=== PATIENT | male | born 1975 | race Caucasian/White ===

== ENCOUNTER → 2018-12-22 | Outpatient (CLI) | payer BC, SELFPAY ==
[2018-12-22 17:38] LABS: Absolute Lymphocyte Count 2.05 X10^3/uL (0.83-4.51); Absolute Neutrophil Count 3.2 X10^3/uL (2.0-7.7); Basophil# 0.03 X10^3/uL; Basophil% 0.5 % (0-1); Eosinophils% 1.6 % (0-5); Hematocrit 52.6 % (40-54); Hemoglobin 17.2 g/dL (13.0-16.5); Lymphocyte # 2.05 X10^3/ul (4.0); Lymphocyte % 32.9 % (19-41); Mean Corp Hgb Conc 32.7 g/dL (32-36); Mean Corpuscular Hgb 30.3 pg (27.0-32.0); Mean Corpuscular Volume 92.6 fL (80-94); Mean Platelet Vol. 9.3 fl (6.2-12.0); Monocyte# 0.82 X10^3/uL; Monocyte% 13.2 % (0-10); NRBC Flagged by Analyzer 0 % (0-5); Neutrophil # 3.21 X10^3/uL (2.7-7.7); Neutrophil % 51.5 % (47-70); Platelet Count 205 K/mm3 (150-450); RBC Distribution Width CV 12.4 % (11.6-14.6); Red Blood Count 5.68 M/mm3 (4.6-6.2); White Blood Count 6.2 K/mm3 (4.4-11.0)
[2018-12-22 18:01] LABS: Anion Gap 5 (5-15); BUN 14 mg/dL (7-18); Calcium,Total 8.7 mg/dL (8.5-10.1); Chloride 105 mmol/L (98-107); Cholesterol 281 mg/dL (200); Creatinine, Serum 1.17 mg/dL (0.70-1.30); EST Glomerular Filtration Rate 71 mL/min (>60); Est Glom Filt Rate - Afr Amer 86 mL/min (>60); Glucose 97 mg/dL (74-106); High Density Lipoprotein 44 mg/dL; Potassium 3.9 mmol/L (3.5-5.1); Sodium Level 139 mmol/L (136-145); Thyroid Stim Hormone (TSH) 1.74 uIU/mL (0.358-3.74); Triglycerides 119 mg/dL; Very Low Density Lipoprotein 24 mg/dL (5-40)
== END | disposition home or self-care (01) ==
PROVIDERS: Family Provider Family Medicine; PCP Family Medicine; Referring Provider Family Medicine; Visit Provider Family Medicine
DX: Z00.00 Encounter for general adult medical examination without abnormal findings (principal)
CPT/HCPCS: 36415; 80048; 80061; 84403; 84443; 85025

== ENCOUNTER 2022-01-23 19:42 | Emergency (ER) | payer OTHER, SELFPAY ==
[2022-01-23 19:44] VITALS: BP 163/96; PULSE 87; RESP 17; TEMP 37.1; O2SAT 99; BMI 37.4
--- NOTE | 2022-01-23 20:05 | EDS_ITS ---
HPI History of Present Illness Chief Complaint: Lower Extremity Injury Narrative Narrative: Patient presents with left calf pain that he has had for the last 6-7 days. He states last Wednesday he had his removing his daughter and he was going up and down stairs moving furniture. He states his left calf felt tight, but then it continued to the point where there is a spot on his left calf which feels hard. He denies any chest pain or shortness of breath. No redness to his leg or circumferential swelling. He was reading on the Internet and became concerned and wanted to have an ultrasound to rule out a blood clot. He states he made an appointment with his primary care physician for Wednesday, but was concerned because he noticed elevated blood pressure. He denies any headache. No other symptoms. PFSH PFS Home Medications Workout Supplements 1 tab PO DAILY 04/12/15 [History Last Taken Unknown] Allergy/AdvReac Type Severity Reaction Status Date / Time amoxicillin Allergy Vomiting Verified 01/23/22 19:47 Social History Smoking Status: Never smoker ROS ROS ED ROS Narrative Constitutional: No fever, no chills. HEENT: No sore throat. No neck pain. No loss of vision. No rhinorrhea. Cardiovascular: No chest pain. No palpitations. No pedal edema. Respiratory: No cough, no shortness of breath. Abdominal: No abdominal pain. No nausea. No vomiting. Genitourinary: No dysuria. No hematuria. Musculoskeletal: Left posterior calf pain. No arthralgias. Neurologic: No headaches. No dizziness. No lightheadedness. Skin: No rash. No change in color. Psychiatric: No depression. No anxiety. EXAM Physical Exam Narrative Exam Narrative: Afebrile. Vital signs noted. HEENT: Normocephalic. Atraumatic. PERRL, EOMI. Neck soft and supple. No point tenderness or step off. Cardiovascular: Regular rate and rhythm. No murmurs, rubs, or gallops appreciated. Respiratory: No tachypnea. Lungs clear to auscultation bilaterally. Gastrointestinal: Abdomen soft, nontender, with normoactive bowel sounds. No r ebound or guarding. Neurological: Awake. Alert. Nonfocal, nonlateralizing. Skin: No rash. Normal color. No pallor. Musculoskeletal: No pedal edema. Full range of motion extremities. Mild tenderness to palpation in left calf an area of skin excoriation where patient states he has a bug bite. No circumferential swelling. No palpable cord. Full range of motion of knee and ankle. No erythema. Palpable dorsalis pedis pulse. Const Vital Signs: 01/23/22 19:44 Temperature 98.8 F Temperature Source Temporal Pulse Rate 87 Respiratory Rate 17 Blood Pressure 163/96 H Blood Pressure Mean 118 Pulse Ox 99 Oxygen Delivery Method Room Air MDM MDM MDM Narrative Medical decision making narrative: Primarily, the area is below the knee. Suspicion is low for DVT. Ultrasound was obtained to rule out deep venous thrombosis. Regarding his elevated blood pressure. He does have an elevated reading here at 163/96. He thinks it may be secondary to stress. He does have a blood pressure cuff at home and he states he monitors his blood pressure once a month. As he is asymptomatic, he was told to follow-up on Wednesday regarding his elevated blood pressure. I do not feel that any laboratory work is indicated. Ultrasound of the left lower extremity does reveal a mid calf peroneal DVT. As this is below the knee, he may only require serial ultrasounds and not anticoagulation. I did discuss the patient with the vascular surgeon, Dr. Miguel Devi, who agrees with close outpatient follow-up on Wednesday, day 3 for repeat ultrasound. He will be decided then whether or not the patient should go under a 6-week anticoagulation period. I feel he can be discharged safely home with follow-up to vascular surgery. Return instructions were reviewed. Disposition is discharged home in stable condition. Discharge Plan Triage Chief Complaint: Lower Extremity Injury ED Provider: Gustavo Moya Dx/Rx/DC Orders Clinical Impression: Pain of left calf, Elevated blood pressure reading without diagnosis of hypertension, Acute deep vein thrombosis (DVT) of peroneal vein Instructions: ED Deep Vein Thrombosis (DVT) Prescriptions: No Action Workout Supplements 1 tab PO DAILY Primary Care Provider: Kamaljit Vazquez Referrals: Miguel Devi MD [Med Staff - Active Staff] - 01/26/22 Anup Richards MD [Med Staff - Active Staff] - Keep Michel appointment Activity Restrictions/Additional Instructions: Still perform daily activities such as walking, but do not overstrain your calf muscles. Follow-up with Dr. Miguel Devi on Wednesday. You may only require serial ultrasounds. Call the office first thing on Wednesday morning to be seen for repeat duplex ultrasound of your left leg on Wednesday the . His phone number is Disposition Disposition: Home, Self Care
--- NOTE | 2022-01-23 20:11 | US_ITS ---
STUDY: VENOUS DOPPLER ULTRASOUND - BILATERAL LOWER EXTREMITIES REASON FOR EXAM: Male, 46 years old. undefined -- PAIN LT LEG TECHNIQUE: Ultrasound evaluation of the deep vein system to include dunlap-scale imaging and compression was performed. Dunlap-scale imaging and Doppler sonographic evaluation, including duplex spectral analysis and qualitative color flow sonography, was performed. COMPARISON: None. FINDINGS: RIGHT LEG Common Femoral Vein: Normal compression, spontaneity and augmentation. Normal color Doppler. Common Femoral Vein/Greater Saphenous Junction: Normal compression, spontaneity and augmentation. Normal color Doppler. Deep Femoral Vein: Normal compression, spontaneity and augmentation. Normal color Doppler. Femoral Proximal: Normal compression, spontaneity and augmentation. Normal color Doppler. Femoral Middle: Normal compression, spontaneity and augmentation. Normal color Doppler. Femoral Distal: Normal compression, spontaneity and augmentation. Normal color Doppler. Popliteal Vein: Normal compression, spontaneity and augmentation. Normal color Doppler. Posterior Tibial Vein: Normal compression, spontaneity and augmentation. Normal color Doppler. Peroneal Vein: Normal compression, spontaneity and augmentation. Normal color Doppler. LEFT LEG Common Femoral Vein: Normal compression, spontaneity and augmentation. Normal color Doppler. Common Femoral Vein/Greater Saphenous Junction: Normal compression, spontaneity and augmentation. Normal color Doppler. Deep Femoral Vein: Normal compression, spontaneity and augmentation. Normal color Doppler. Femoral Proximal: Normal compression, spontaneity and augmentation. Normal color Doppler. Femoral Middle: Normal compression, spontaneity and augmentation. Normal color Doppler. Femoral Distal: Normal compression, spontaneity and augmentation. Normal color Doppler. Popliteal Vein: Normal compression, spontaneity and augmentation. Normal color Doppler. Posterior Tibial Vein: Normal compression, spontaneity and augmentation. Normal color Doppler. Peroneal Vein: Noncompressible filled with thrombus. US/Venous Duplex Imag/Lucius Extrem IMPRESSION: Positive for calf vein thrombosis of the left peroneal vein. Electronically Signed: Kervin Ellington MD at 21:52 EDT ,
[2022-01-23 21:33] VITALS: BP 168/91
== END 2022-01-23 21:34 | disposition home or self-care (01) ==
PROVIDERS: Emergency Provider Emergency Medicine; PCP Family Medicine; Visit Provider Emergency Medicine
DX: I82.452 Acute embolism and thrombosis of left peroneal vein (principal); R03.0 Elevated blood-pressure reading, without diagnosis of hypertension; M79.662 Pain in left lower leg
CPT/HCPCS: 93970; 99282

== ENCOUNTER → 2022-01-27 | Outpatient (CLI) | payer OTHER, SELFPAY ==
--- NOTE | 2022-01-27 14:20 | VDLE_ITS ---
Reason For Study: DVT Procedure LEFT This is a venous duplex using B-mode, color GSV is normal. flow and spectral Doppler. CFV is compressible, spontaneous, phasic, Exam performed in department. competent, and demonstrates normal The exam was abbreviated due to the COVID 19 augmentation. protocol. FV is compressible, spontaneous, phasic, The exam was diagnostic. competent and demonstrates normal A preliminary report was called and/or faxed augmentation. to Dr. Devi. POP V is compressible, spontaneous, phasic, competent and demonstrates normal augmentation. T/P Trunk is compressible. PTV are dilated and noncompressible. Proximal Peroneal V are dilated and noncompressible. Mid and Dist Peroneal V are compressible. VL/Venous Duplex US, Unilateral Interpretation Summary Acute deep vein thrombosis is noted in the left posterior tibial vein and proxi mal peroneal vein. Similar in appearance to prior study with no proximal propagation Ordering Physician: Miguel Devi Performed By: Silverio Mckay RVT
== END | disposition home or self-care (01) ==
LOC: CVS 14:19
PROVIDERS: PCP Family Medicine; Referring Provider Surgery Trauma Surgery; Visit Provider Surgery Trauma Surgery
DX: I82.452 Acute embolism and thrombosis of left peroneal vein (principal)
CPT/HCPCS: 93971

== ENCOUNTER → 2022-02-18 | Outpatient (CLI) | payer OTHER, SELFPAY ==
--- NOTE | 2022-02-18 07:44 | VDLE_ITS ---
Reason For Study: DVT RIGHT LEFT CFV is compressible, spontaneous, phasic, GSV is normal. competent and demonstrates normal CFV is compressible, spontaneous, phasic, augmentation. competent, and demonstrates normal Procedure augmentation. This is a venous duplex using B-mode, color FV is compressible, spontaneous, phasic, flow and spectral Doppler. competent and demonstrates normal Exam performed in department. augmentation. The exam was diagnostic. POP V is compressible, spontaneous, phasic, competent and demonstrates normal augmentation. T/P Trunk is compressible. PTV dilated and noncompressible. No flow noted in color and pulse wave doppler. LT PerV is compressible. VL/Venous Duplex US, Unilateral Interpretation Summary Acute deep vein thrombosis is noted in the left posterior tibial vein. Negative for propagation Ordering Physician: Miguel Devi Referring Physician: Miguel Devi MD Performed By: Israel Rogers, RVT
== END | disposition home or self-care (01) ==
LOC: CVS 07:44
PROVIDERS: PCP Family Medicine; Referring Provider Surgery Trauma Surgery; Visit Provider Surgery Trauma Surgery
DX: I82.459 Acute embolism and thrombosis of unspecified peroneal vein (principal)
CPT/HCPCS: 93971

== ENCOUNTER → 2022-06-19 | Outpatient (CLI) | payer OTHER, SELFPAY ==
[2022-06-19 15:26] LABS: Erythrocyte Sedimentation Rate 11 mm/hr (0-20)
== END | disposition home or self-care (01) ==
LOC: LABSPEC 14:58
PROVIDERS: PCP Family Medicine; Referring Provider Nurse Practitioner Primary Care; Visit Provider Nurse Practitioner Primary Care
DX: R10.31 Right lower quadrant pain (principal)
CPT/HCPCS: 85652

== ENCOUNTER 2023-01-10 09:00 | Emergency (ER) | payer OTHER, SELFPAY ==
[2023-01-10 09:01] VITALS: BP 146/96; PULSE 89; RESP 16; TEMP 36.4; O2SAT 97; BMI 36.9
--- NOTE | 2023-01-10 10:35 | EDS_ITS ---
HPI History of Present Illness Chief Complaint: Lower Extremity Injury Narrative Narrative: 47-year-old male past medical history of previous below the knee peroneal clot in his left lower extremity, did not take blood thinners, presents with left hip pain and with numbness underneath his left great toe that he has had for quite some time, but is worsening. He states that he was seen by his primary care provider initially and was sent to physical therapy for arthritis in his back. He also sees a chiropractor. Over the last few days, he has been having worsening left buttocks pain and left hip pain, states he is having difficulty raising his left big toe and has numbness and burning pain but needs that. He states the pain in his hip also shoots down to his foot leg, and radicular symptoms. He denies any fevers or chills, no nausea or vomiting, no saddle anesthesia, no loss of bowel or bladder. He went to urgent care today, and they were concerned regarding a blood clot again in his left lower extremity. He denies any chest pain or shortness of breath, no overt leg swelling, no other symptoms. [facility] Home Medications Workout Supplements 1 tab PO DAILY 04/12/15 [History Last Taken Unknown] cyclobenzaprine 10 mg tablet 10 mg PO TID PRN Muscle Spasm #20 TABLETS 01/10/23 [Rx Last Taken Unknown] methylprednisolone 4 mg tablets in a dose pack (Medrol (Toni)) 4 mg PO DAILY #21 tabs 01/10/23 [Rx Last Taken Unknown] Allergy/AdvReac Type Severity Reaction Status Date / Time amoxicillin Allergy Vomiting Verified 01/10/23 09:06 Family History Other CVA (cerebral vascular accident) Thyroid disorder Social History Smoking Status: Never smoker alcohol intake: current ROS ROS ED ROS Narrative Constitutional: No fever, no chills. HEENT: No sore throat. No neck pain. No loss of vision. No rhinorrhea. Cardiovascular: No chest pain. No palpitations. No pedal edema. Respiratory: No cough, no shortness of breath. Abdominal: No abdominal pain. No nausea. No vomiting. Genitourinary: No dysuria. No hematuria. Musculoskeletal: No myalgias. Left hip and buttocks pain. Neurologic: No headaches. No dizziness. No lightheadedness. Burning pain and numbness underneath the left great toe, mild weakness of left great toe. Skin: No rash. No change in color. Psychiatric: No depression. No anxiety. EXAM Physical Exam Narrative Exam Narrative: Afebrile. Vital signs noted. HEENT: Normocephalic. Atraumatic. PERRL, EOMI. Neck soft and supple. No point tenderness or step off. Cardiovascular: Regular rate and rhythm. No murmurs, rubs, or gallops appreciated. Respiratory: No tachypnea. Lungs clear to auscultation bilaterally. Gastrointestinal: Abdomen soft, nontender, with normoactive bowel sounds. No rebound or guarding. Neurological: Awake. Alert. Nonfocal, nonlateralizing. Questionable weakness of EHL, but EHL intact left great toe. Skin: No rash. Normal color. No pallor. Musculoskeletal: No pedal edema. Full range of motion extremities. Palpable dorsalis pedis pulse. Flexion and extension of left knee intact. Flexion extension left hip also intact. No swelling or palpable cord. No erythema of left lower extremity, thigh or calf. Mild tenderness to palpation left sciatic notch. No vertebral point tenderness or bony step-off of the lumbar spine. Const Vital Signs: 01/10/23 09:01 Temperature 97.5 F L Temperature Source Temporal Pulse Rate 89 Respiratory Rate 16 Blood Pressure 146/96 H Blood Pressure Mean 112 Pulse Ox 97 Oxygen Delivery Method Room Air MDM MDM MDM Narrative Medical decision making narrative: I reviewed the patient's prior ED visits. Regarding his perineal clot, they state that he was treated with 1 dose of blood thinner, he followed up with vascular surgery, and his symptoms resolved. Additionally, he is being treated for degenerative disc disease of his back. While he does not have back pain, feel he has more of a sciatic and lumbar radiculopathy. Through shared decision making, and the fact that I do not feel that an ultrasound is emergently ind icated, patient and his are comfortable with that, and can follow-up with his primary care provider for imaging. I discussed the use of narcotic pain medication with him and he declined. Instead, in the emergency department he will be given intramuscular injections of Norflex and Toradol. I will write him a prescription for Medrol Dosepak and for Flexeril to take as needed. He will follow-up with his primary care provider in the next few days. There are no signs of cauda equina, no red flag signs and I do not feel that imaging of his back is indicated as he states he has had this in the past and was diagnosed with degenerative disc disease. I feel he be discharged safely home with follow-up and continued physical therapy and treatment for lumbar radiculopathy/sciatica. Patient is comfortable with the plan. Disposition is discharged home in stable condition. Discharge Plan Triage Chief Complaint: Lower Extremity Injury ED Provider: Gustavo Moya Dx/Rx/DC Orders Clinical Impression: Sciatica of left side, Left lumbar radiculopathy Instructions: ED Sciatica Prescriptions: New methylprednisolone [Medrol (Toni)] 4 mg tablets,dose pack 4 mg PO DAILY Qty: 21 0RF cyclobenzaprine 10 mg tablet 10 mg PO TID PRN (Reason: Muscle Spasm) Qty: 20 0RF No Action Workout Supplements 1 tab PO DAILY Primary Care Provider: Kamaljit Vazquez Referrals: Kamaljit Vazquez MD [Primary Care Provider] - 3-5 Days Activity Restrictions/Additional Instructions: Follow-up with your primary care provider, chiropractor, and continue physical therapy. Return with new or worsening symptoms. Disposition Disposition: Home, Self Care
[2023-01-10] MEDS: Orphenadrine 60 MG/2 ML Ampul IM (10:38)
[2023-01-10] MEDS: Ketorolac 60 MG/2 ML Vial IM (10:38)
== END 2023-01-10 11:40 | disposition home or self-care (01) ==
LOC: ED 11:02
PROVIDERS: Emergency Provider Emergency Medicine; PCP Family Medicine; Visit Provider Emergency Medicine
DX: M54.32 Sciatica, left side (principal); M54.16 Radiculopathy, lumbar region
CPT/HCPCS: 96372; 99282

== ENCOUNTER 2023-05-04 09:50 | Emergency (ER) | payer BC, SELFPAY ==
[2023-05-04 09:51] VITALS: BP 169/87; PULSE 98; RESP 18; TEMP 36.1; O2SAT 96; BMI 38.7
--- NOTE | 2023-05-04 10:13 | EDS_ITS ---
HPI History of Present Illness Chief Complaint: Edema Informant: patient Onset/Context/Timing Onset: Today Narrative Narrative: Patient presents with swelling to his upper lip. He states he woke around 130 this morning and felt like his upper lip was swollen. He denies tongue edema or throat tightness. He went to urgent care this morning but they advised they could not treat him and sent him to the emergency room. Patient is on lisinopril and has been for the last year and a half. [facility] Medical History (Updated 05/04/23 @ 13:[address] Alba Kumari MD) Hypertension Home Medications Workout Supplements 1 tab PO DAILY 04/12/15 [History Last Taken Unknown] cyclobenzaprine 10 mg tablet 10 mg PO TID PRN Muscle Spasm #20 TABLETS 01/10/23 [Rx Last Taken Unknown] methylprednisolone 4 mg tablets in a dose pack (Medrol (Toni)) 4 mg PO DAILY #21 tabs 01/10/23 [Rx Last Taken Unknown] prednisone 20 mg tablet 40 mg (2 x 20 mg) PO DAILY #8 tabs 05/04/23 [Rx Last Taken Unknown] Allergy/AdvReac Type Severity Reaction Status Date / Time amoxicillin Allergy Vomiting Verified 05/04/23 09:51 Family History Other CVA (cerebral vascular accident) Thyroid disorder Social History Smoking Status: Never smoker alcohol intake: current ROS ROS ED Constitutional Constitutional ED: Denies chills or fever(s) Eyes Eyes: Denies discharge from eye(s) ENT ENT ED: Reports other Details: Upper lip edema ; Denies discharge from eye(s), rhinorrhea or sore throat Cardiovascular Cardiovascular: Denies chest pain or palpitations Respiratory/Chest Respiratory/Chest: Denies cough or dyspnea Gastrointestinal Gastrointestinal: Denies abdominal pain, nausea or vomiting Genitourinary Genitourinary ED: Denies dysuria Musculoskeletal Musculoskeletal: Denies back pain or extremity pain Integumentary Denies Abrasions or rash Neurologic Neurologic: Denies headache(s) or weakness Psychiatric Psychiatric: Denies anxiety or depression Allergic/Immunologic Allergic/Immunologic ED: Denies lip swelling or urticaria EXAM Physical Exam Const Vital Signs: 05/04/23 09:51 05/04/23 10:55 05/04/23 10:56 Temperature 96.9 F L Temperature Source Temporal Pulse Rate 98 90 Respiratory Rate 18 16 Respiratory Effort Normal Respiratory Pattern Normal Blood Pressure 169/87 H 126/75 H Blood Pressure Mean 114 92 Pulse Ox 96 96 Oxygen Delivery Method Room Air Room Air 05/04/23 12:20 05/04/23 14:12 Temperature Temperature Source Pulse Rate 94 91 Respiratory Rate 16 16 Respiratory Effort Respiratory Pattern Blood Pressure 116/78 130/87 H Blood Pressure Mean 90 101 Pulse Ox 94 94 Oxygen Delivery Method Room Air Positive well nourished and well developed General Appearance ED: well developed HEENT Reports moist mucous membranes HEENT Narrative: Minimal edema to the upper lip. No gum edema. No tongue edema. Speaks with a strong voice and tolerate secretions well. No erythema noted. Eyes EOMs intact bilaterally Chest Wall inspection of chest normal and palpation of chest normal Resp normal respiratory effort and clear to auscultation bilaterally Cardio regular rate and regular rhythm GI non-tender Palpation: soft Extremity normal to inspection Neuro oriented x3 and no sensory deficits noted Motor Exam: strength 5/5 throughout Psych mental status grossly normal Skin no rashes or lesions noted MDM MDM MDM Narrative Medical decision making narrative: Patient given Pepcid, Benadryl, and Solu-Medrol. Patient was observed for 2 hours after medications given. He did have improvement in his edema. I did speak with Dr. Roldan, on-call for patient's primary care physician Dr. Vazquez. Patient will hold his lisinopril. I did give him 4 additional days of prednisone and office will call him to set up follow-up next week. Discharge Plan Triage Chief Complaint: Edema ED Provider: Alba Kumari Dx/Rx/DC Orders Clinical Impression: Allergic reaction Instructions: ED ADVERSE DRUG REACTION Allergic Prescriptions: New prednisone 20 mg tablet 40 mg PO DAILY Qty: 8 0RF No Action Workout Supplements 1 tab PO DAILY methylprednisolone [Medrol (Toni)] 4 mg tablets,dose pack 4 mg PO DAILY Qty: 21 0RF cyclobenzaprine 10 mg tablet 10 mg PO TID PRN (Reason: Muscle Spasm) Qty: 20 0RF Primary Care Provider: Kamaljit Vazquez Referrals: Kamaljit Vazquez MD [Primary Care Provider] - 1 Week Disposition Disposition: Home, Self Care Discharge Date/Time: 05/04/23 14:13
[2023-05-04] MEDS: MethylPREDNISolone 125 MG/2 ML Vial IV (10:49)
[2023-05-04] MEDS: DiphenhydrAMINE 50 MG/ML Syringe 25 MG IV (10:50)
[2023-05-04] MEDS: Famotidine 200 MG/20 ML MDV 20 MG in 0.9% Normal Saline (Pres. free 8 ML 300 MG IV (10:54)
[2023-05-04 10:55] VITALS: BP 126/75; PULSE 90; RESP 16; O2SAT 96
[2023-05-04 12:20] VITALS: BP 116/78; PULSE 94; RESP 16; O2SAT 94
[2023-05-04 14:12] VITALS: BP 130/87; PULSE 91; RESP 16; O2SAT 94
--- NOTE | 2023-05-04 14:36 | NURSING ---
PAGED DR DUGGAN [phone] CALLED OFFICE [phone]
== END 2023-05-04 14:13 | disposition home or self-care (01) ==
PROVIDERS: Emergency Provider Emergency Medicine; PCP Family Medicine; Visit Provider Emergency Medicine
DX: T78.40XA Allergy, unspecified, initial encounter (principal); R60.9 Edema, unspecified; I10 Essential (primary) hypertension; Z79.899 Other long term (current) drug therapy
CPT/HCPCS: 96374; 96375; 99283; A4216; J3490